=== PATIENT | male | born 1945 | race Caucasian/White ===

== ENCOUNTER 2023-04-25 08:46 | Inpatient (IN) | payer MEDICARE ==
[~2023-04-25] VITALS: Ht 175.3 cm; Wt 108.9 kg
[~2023-04-25 08:46] MED LIST: LEVO-70 PO; LISI5TAB21 PO; METO-408 PO; SIMV-46 PO; TAMS-1 PO
[2023-04-25 09:09] LABS: BASOPHILS # (AUTO) 0.04 K/uL (0.00-0.20); BASOPHILS % (AUTO) 0.2 % (0.0-5.0); EOSINOPHILS # (AUTO) 0.04 K/uL (0.00-0.70); EOSINOPHILS % (AUTO) 0.2 % (0.0-8.0); HEMATOCRIT 42.9 % (42-54); IMMATURE GRANULOCYTE ABSOLUTE 0.14 K/uL (0-1); LYMPHOCYTES # (AUTO) 0.8 K/uL (1.0-4.8); LYMPHOCYTES % (AUTO) 3.9 % (21.0-51.0); MEAN CORPUSCULAR HEMOGLOBIN 32.1 pg (27.0-33.0); MEAN CORPUSCULAR HGB CONC 33.6 g/dL (32.0-36.0); MEAN CORPUSCULAR VOLUME 95.8 fL (79-99); MONOCYTES # (AUTO) 1.3 K/uL (0.1-1.0); MONOCYTES % (AUTO) 6.3 % (3.0-13.0); NEUTROPHILS # (AUTO) 18.4 K/uL (1.8-7.7); NEUTROPHILS % (AUTO) 88.7 % (40.0-77.0); PLATELET COUNT (AUTO) 185 K/uL (130-400); RED BLOOD CELL COUNT(AUTO) 4.48 MIL/uL (4.50-6.20); WHITE BLOOD COUNT (AUTO) 20.7 K/uL (4.8-10.8)
[2023-04-25 09:22] LABS: CREATININE 1.1 mg/dL (0.5-1.5); POTASSIUM 4.8 mmol/L (3.5-5.1)
[2023-04-25 09:27] LABS: ALBUMIN 3.6 g/dL (3.5-5.0); BILIRUBIN,TOTAL 0.9 mg/dL (0.2-1.0); TOTAL PROTEIN, SERUM 7.4 g/dL (6.0-8.3)
[2023-04-25 09:28] LABS: RAPID GROUP A STREP negative (NEGATIVE)
[2023-04-25 09:30] LABS: SARS-CoV-2, RNA, NAAT NEGATIVE SARS CoV-2 (NEGATIVE)
[2023-04-25 09:39] LABS: INFLUENZA TYPE A Negative For Type A (NEGATIVE); INFLUENZA TYPE B Negative For Type B (NEGATIVE)
[2023-04-25 10:04] LABS: INR 0.97 (0.85-1.15); PROTHROMBIN TIME 11.3 SEC (9.6-11.6)
[2023-04-25] MEDS: CEFTRIAXONE 1G VIAL IVPB ONE (10:05)
[2023-04-25] MEDS: 0.9%NACL 1000ML 1,983 ML IV ONE ×2 (10:05→10:06)
[2023-04-25 10:06] LABS: PARTIAL THROMBOPLASTIN TIME 29.1 SEC (26.3-35.5)
[2023-04-25] MEDS: ACETAMINOPHEN 500 MG TABLET PO ONE (10:06)
[2023-04-25 11:21] LABS: APPEARANCE,URINE CLOUDY (CLEAR); BILIRUBIN,URINE NEGATIVE (NEGATIVE); COLOR,URINE LIGHT-YELLOW (YELLOW); GLUCOSE, URINE (UA) NEGATIVE (NEGATIVE); KETONES,URINE NEGATIVE (NEGATIVE); LEUKOCYTE ESTERASE ,URINE 500 Leu/uL (NEGATIVE); NITRATE,URINE 2+ (NEGATIVE); OCCULT BLOOD,URINE SMALL (NEGATIVE); PROTEIN,URINE NEGATIVE (NEGATIVE); UROBILINOGEN,URINE 0.2 mg/dL (0.2-1.0)
[2023-04-25 11:22] LABS: ADD UA MICROSCOPIC YES
[2023-04-25 11:40] LABS: BACTERIA,URINE MANY /HPF (None Seen); MUCUS,URINE RARE LPF (None Seen); SQUAMOUS EPITHELIAL CELL,UR RARE /HPF (0-2); WBC CLUMP FEW /HPF (0-1); WBC,URINE TNTC /HPF (0-1)
[2023-04-25] MEDS: 0.9% NACL 500ML IV.SOLN 500 ML IV ONE (13:09)
[2023-04-25] MEDS: 0.9%NACL 1000ML 1,000 ML IV SCH (14:58)
[2023-04-25] MEDS: ZOSYN 3.375GM +NS 50ML IVPB ONE (14:58)
[2023-04-25 15:29] LABS: MAGNESIUM 2.1 mg/dL (1.80-2.40); THYROID STIMULATING HORMONE 0.48 uIU/mL (0.36-3.74)
[2023-04-25 15:42] LABS: HEMOGLOBIN A1C 6.1 % (4.0-6.0)
[2023-04-25 15:45] LABS: ABG HCO3 21.4 mmol/L (21.0-28.0); ABG OXYGEN SATURATION 96.8 % (95.0-99.0); ABG PCO2 33 mmHg (35-48); ABG PH 7.434 (7.35-7.450); CARBON MONOXIDE 1.6; DEVICE COMMENT RR SAUL RN; HHb 3.1; VENT MODE, BG NC (ROOM AIR)
[2023-04-25 15:50] VITALS: PULSE 69; RESP 22
[2023-04-25] MEDS: IPRATROPIUM/ALBUTEROL SULFATE 3 ML SOLUTION IH PRN (15:52)
[2023-04-25 19:48] VITALS: PULSE 73; RESP 20; O2SAT 96
[2023-04-25] MEDS: IPRATROPIUM/ALBUTEROL SULFATE 3 ML SOLUTION IH SCH (19:48)
[2023-04-25 19:56] VITALS: PULSE 77; RESP 18
[2023-04-25] MEDS: BUDESONIDE 0.5 MG/2 ML INH IH SCH (19:56)
[2023-04-25] MEDS ORDERED: 0.9%NACL 50ML IV SCH (20:00)
[2023-04-25] MEDS: INSULIN HUMULIN R 100 UNIT/ML 3ML SQ SCH (20:53)
[2023-04-25] MEDS ORDERED: NON-FORMULARY MEDICATION 1 EACH (Simvastatin 40 MG) PO SCH (21:00)
[2023-04-25] MEDS: SIMVASTATIN 20 MG TABLET PO SCH (21:32)
[2023-04-25] MEDS: FAMOTIDINE 20MG VIAL IV SCH (21:32)
[2023-04-25] MEDS: ZOSYN 3.375GM +NS 50ML IVPB SCH (21:32)
[2023-04-26] VITALS (111 sets, daily range): BP systolic 53–180; BP diastolic 25–97; PULSE 44–105; RESP 9–76; TEMP 99.9; O2SAT 94–99
[2023-04-26] MEDS: ACETAMINOPHEN 500 MG TABLET PO ONE (01:36)
[2023-04-26] MEDS: NOREPINEPHRIN 4MG/NS 250ML 250 ML IV ONE (01:41)
[2023-04-26] MEDS: NOREPINEPHRIN 4MG/NS 250ML 250 ML IV SCH (01:42)
[2023-04-26] MEDS: 0.9%NACL 1000ML 1,000 ML IV ONE (01:43)
[2023-04-26] MEDS: ACETAMINOPHEN 500 MG TABLET ONE (01:43)
[2023-04-26 01:44] LABS: BASOPHILS # (AUTO) 0.07 K/uL (0.00-0.20); BASOPHILS % (AUTO) 0.3 % (0.0-5.0); EOSINOPHILS # (AUTO) 0.01 K/uL (0.00-0.70); HEMATOCRIT 39.5 % (42-54); IMMATURE GRANULOCYTE ABSOLUTE 0.19 K/uL (0-1); LYMPHOCYTES # (AUTO) 1.7 K/uL (1.0-4.8); LYMPHOCYTES % (AUTO) 6.7 % (21.0-51.0); MEAN CORPUSCULAR HEMOGLOBIN 32.1 pg (27.0-33.0); MEAN CORPUSCULAR HGB CONC 33.4 g/dL (32.0-36.0); MEAN CORPUSCULAR VOLUME 96.1 fL (79-99); MONOCYTES # (AUTO) 1.9 K/uL (0.1-1.0); MONOCYTES % (AUTO) 7.4 % (3.0-13.0); NEUTROPHILS # (AUTO) 21.2 K/uL (1.8-7.7); NEUTROPHILS % (AUTO) 84.8 % (40.0-77.0); PLATELET COUNT (AUTO) 133 K/uL (130-400); RED BLOOD CELL COUNT(AUTO) 4.11 MIL/uL (4.50-6.20); RED CELL DISTRIBUTION WIDTH 14.4 % (11.0-15.5); WHITE BLOOD COUNT (AUTO) 25.1 K/uL (4.8-10.8)
[2023-04-26 01:50] LABS: MAGNESIUM 1.9 mg/dL (1.80-2.40); POTASSIUM 5.4 mmol/L (3.5-5.1)
[2023-04-26] MEDS ORDERED: ACETAMINOPHEN 325 MG TAB PO PRN (02:00)
[2023-04-26 02:22] LABS: SARS-CoV-2, RNA, NAAT NEGATIVE SARS CoV-2 (NEGATIVE)
[2023-04-26] MEDS ORDERED: VANCOMYCIN PROTOCOL PER PHARMACY IV SCH (02:30)
[2023-04-26] MEDS ORDERED: IOHEXOL-350 75 ML VIAL IV ONE ×2 (02:47→03:03)
[2023-04-26] MEDS: VANCOMYCIN 1G/250ML KIT 250 ML IV ONE (02:50)
[2023-04-26] MEDS: ERYTHROMYCIN BASE 0.5% OPHTH OINT 1 GM TUBE OU SCH (02:50)
[2023-04-26 07:01] LABS: POTASSIUM 3.7 mmol/L (3.5-5.1)
[2023-04-26] MEDS: VANCOMYCIN 1G/250ML KIT 250 ML IV SCH (08:40)
[2023-04-26] MEDS: PREDNISONE 20 MG TABLET PO SCH (08:41)
[2023-04-26] MEDS: TAMSULOSIN HCL 0.4 MG CAP.ER.24H PO SCH (08:41)
[2023-04-26] MEDS ORDERED: LISINOPRIL 5 MG TABLET PO SCH (09:00)
[2023-04-26] MEDS ORDERED: METOPROLOL SUCCINATE 25 MG TAB.SR.24H PO SCH (09:00)
[2023-04-26 10:46] LABS: INR 1.07 (0.85-1.15); PROTHROMBIN TIME 12.4 SEC (9.6-11.6)
[2023-04-26] MEDS: HALOPERIDOL INJ 5 MG/ML VIAL IM SCH (19:57)
[2023-04-27] VITALS (96 sets, daily range): BP systolic 60–146; BP diastolic 29–94; PULSE 60–120; RESP 7–64; O2SAT 6–100
[2023-04-27 04:42] LABS: BASOPHILS # (AUTO) 0.03 K/uL (0.00-0.20); BASOPHILS % (AUTO) 0.1 % (0.0-5.0); HEMATOCRIT 36.5 % (42-54); IMMATURE GRANULOCYTE ABSOLUTE 0.37 K/uL (0-1); LYMPHOCYTES # (AUTO) 1.1 K/uL (1.0-4.8); LYMPHOCYTES % (AUTO) 4.2 % (21.0-51.0); MEAN CORPUSCULAR HEMOGLOBIN 31.6 pg (27.0-33.0); MEAN CORPUSCULAR HGB CONC 33.7 g/dL (32.0-36.0); MEAN CORPUSCULAR VOLUME 93.8 fL (79-99); MONOCYTES # (AUTO) 1.6 K/uL (0.1-1.0); MONOCYTES % (AUTO) 5.9 % (3.0-13.0); NEUTROPHILS # (AUTO) 23.8 K/uL (1.8-7.7); NEUTROPHILS % (AUTO) 88.4 % (40.0-77.0); PLATELET COUNT (AUTO) 187 K/uL (130-400); RED BLOOD CELL COUNT(AUTO) 3.89 MIL/uL (4.50-6.20); RED CELL DISTRIBUTION WIDTH 14.4 % (11.0-15.5); WHITE BLOOD COUNT (AUTO) 26.9 K/uL (4.8-10.8)
[2023-04-27 04:53] LABS: POTASSIUM 3.4 mmol/L (3.5-5.1)
[2023-04-27] MEDS ORDERED: POTASSIUM CHLORIDE 10% ELIXIR 20 MEQ/15 ML UDCUP PO PRN (05:30)
[2023-04-27] MEDS: POTASSIUM CHLORIDE 20MEQ/100ML 100 ML IV PRN (06:48)
[2023-04-27] MEDS: 0.9%NACL 10ML VIAL IV SCH (07:40)
[2023-04-27] MEDS: MIDODRINE HCL 5 MG TABLET PO SCH (09:41)
[2023-04-27] MEDS: KCL 20 MEQ ERTAB PO PRN (09:41)
[2023-04-27] MEDS: POTASSIUM CHLORIDE 20MEQ/100ML 100 ML IV ONE (10:28)
[2023-04-28] VITALS (93 sets, daily range): BP systolic 72–144; BP diastolic 27–95; PULSE 51–110; RESP 6–68; O2SAT 94–96
[2023-04-28 05:15] LABS: HEMATOCRIT 36.3 % (42-54); MEAN CORPUSCULAR HEMOGLOBIN 31.9 pg (27.0-33.0); MEAN CORPUSCULAR HGB CONC 33.9 g/dL (32.0-36.0); MEAN CORPUSCULAR VOLUME 94.3 fL (79-99); RED BLOOD CELL COUNT(AUTO) 3.85 MIL/uL (4.50-6.20); RED CELL DISTRIBUTION WIDTH 14.4 % (11.0-15.5); WHITE BLOOD COUNT (AUTO) 20.2 K/uL (4.8-10.8)
[2023-04-28 05:29] LABS: ALBUMIN 2.7 g/dL (3.5-5.0); BILIRUBIN,TOTAL 0.4 mg/dL (0.2-1.0); MAGNESIUM 2.1 mg/dL (1.80-2.40); POTASSIUM 3.6 mmol/L (3.5-5.1); TOTAL PROTEIN, SERUM 6.4 g/dL (6.0-8.3)
[2023-04-28] MEDS: PREDNISONE 20 MG TABLET PO SCH (08:14)
[2023-04-28] MEDS: POTASSIUM CHLORIDE 20MEQ/100ML 100 ML IV ONE (11:20)
[2023-04-28] MEDS: FAMOTIDINE 20MG TAB PO SCH (20:02)
[2023-04-29] VITALS (75 sets, daily range): BP systolic 82–132; BP diastolic 32–90; PULSE 70–113; RESP 8–33; O2SAT 95–100
[2023-04-29 05:54] LABS: HEMATOCRIT 32.3 % (42-54); MEAN CORPUSCULAR HEMOGLOBIN 31.5 pg (27.0-33.0); MEAN CORPUSCULAR HGB CONC 33.4 g/dL (32.0-36.0); MEAN CORPUSCULAR VOLUME 94.2 fL (79-99); RED BLOOD CELL COUNT(AUTO) 3.43 MIL/uL (4.50-6.20); RED CELL DISTRIBUTION WIDTH 14.6 % (11.0-15.5); WHITE BLOOD COUNT (AUTO) 10.8 K/uL (4.8-10.8)
[2023-04-29 06:19] LABS: ALBUMIN 2.4 g/dL (3.5-5.0); BILIRUBIN,TOTAL 0.4 mg/dL (0.2-1.0); MAGNESIUM 1.9 mg/dL (1.80-2.40); POTASSIUM 3.9 mmol/L (3.5-5.1); TOTAL PROTEIN, SERUM 5.4 g/dL (6.0-8.3)
[2023-04-29] MEDS: MAGNESIUM 2GM PREMIX 50ML 50 ML IV PRN (06:40)
[2023-04-29] MEDS: FUROSEMIDE 40MG VIAL IV ONE (10:03)
[2023-04-30] VITALS (13 sets, daily range): BP systolic 90–134; BP diastolic 54–85; PULSE 68–124; RESP 17–20; O2SAT 94–100
[2023-04-30 05:00] LABS: HEMATOCRIT 33.4 % (42-54); MEAN CORPUSCULAR HEMOGLOBIN 31.4 pg (27.0-33.0); MEAN CORPUSCULAR HGB CONC 33.8 g/dL (32.0-36.0); MEAN CORPUSCULAR VOLUME 92.8 fL (79-99); RED BLOOD CELL COUNT(AUTO) 3.6 MIL/uL (4.50-6.20); RED CELL DISTRIBUTION WIDTH 14.5 % (11.0-15.5); WHITE BLOOD COUNT (AUTO) 9.5 K/uL (4.8-10.8)
[2023-04-30 05:22] LABS: ALBUMIN 2.6 g/dL (3.5-5.0); BILIRUBIN,TOTAL 0.5 mg/dL (0.2-1.0); MAGNESIUM 2.2 mg/dL (1.80-2.40); POTASSIUM 3.9 mmol/L (3.5-5.1); TOTAL PROTEIN, SERUM 5.9 g/dL (6.0-8.3)
[2023-04-30] MEDS: IPRATROPIUM 0.5 MG/2.5 ML INH IH ONE (06:15)
[2023-04-30] MEDS: ALBUTEROL 0.083% 2.5 MG/3 ML INH IH ONE (06:16)
[2023-05-01 03:55] LABS: HEMATOCRIT 35.6 % (42-54); MEAN CORPUSCULAR HEMOGLOBIN 31.3 pg (27.0-33.0); MEAN CORPUSCULAR HGB CONC 32.9 g/dL (32.0-36.0); MEAN CORPUSCULAR VOLUME 95.2 fL (79-99); RED BLOOD CELL COUNT(AUTO) 3.74 MIL/uL (4.50-6.20); RED CELL DISTRIBUTION WIDTH 14.6 % (11.0-15.5); WHITE BLOOD COUNT (AUTO) 11.5 K/uL (4.8-10.8)
[2023-05-01 04:00] VITALS: BP 103/51; PULSE 73; RESP 20
[2023-05-01 04:03] LABS: CREATININE 1.2 mg/dL (0.5-1.5); POTASSIUM 3.9 mmol/L (3.5-5.1)
[2023-05-01 04:08] LABS: ALBUMIN 2.6 g/dL (3.5-5.0); BILIRUBIN,TOTAL 0.4 mg/dL (0.2-1.0); MAGNESIUM 2.3 mg/dL (1.80-2.40); TOTAL PROTEIN, SERUM 5.8 g/dL (6.0-8.3)
[2023-05-01 06:36] VITALS: PULSE 85; RESP 18
[2023-05-01 06:38] VITALS: PULSE 85; RESP 18; O2SAT 96
[2023-05-01 08:00] VITALS: BP 81/58; PULSE 76; RESP 19; O2SAT 96
[2023-05-01 11:03] VITALS: PULSE 89; RESP 18
[2023-05-01 12:00] VITALS: BP 89/65; PULSE 103; RESP 17
[2023-05-01] MEDS ORDERED: SIMV-43 PO (14:01)
[2023-05-01] MEDS ORDERED: TAMS-1 PO (14:01)
[2023-05-01] MEDS ORDERED: LEVO-70 PO (14:01)
[2023-05-01] MEDS ORDERED: MIDO10TA PO (14:02)
[2023-05-01] MEDS ORDERED: ALBU90AE2 IH (14:03)
[2023-05-01] MEDS ORDERED: FLUT1DIS IH (14:04)
== END 2023-05-01 17:10 | disposition home or self-care (01) | DRG 871 ==
LOC: EDH 08:46 → EDHIP 14:37 → 2CV 04-26 01:48 → 2CH 04-27 15:15 → 2BH 04-27 21:08 → 4AH 04-29 19:34
PROVIDERS: ADMIT Internal Medicine; ATTEND Internal Medicine
PROC: 02HV33Z Insertion of Infusion Device into Superior Vena Cava, Percutaneous Approach (ICD-10-PCS; principal; 2023-04-26)
PROC: B548ZZA Ultrasonography of Superior Vena Cava, Guidance (ICD-10-PCS; 2023-04-26)
DX: A41.50 Gram-negative sepsis, unspecified (principal); E11.10 Type 2 diabetes mellitus with ketoacidosis without coma; J96.01 Acute respiratory failure with hypoxia; R65.21 Severe sepsis with septic shock; N30.00 Acute cystitis without hematuria; J44.1 Chronic obstructive pulmonary disease with (acute) exacerbation; Z20.822 Contact with and (suspected) exposure to COVID-19; E66.01 Morbid (severe) obesity due to excess calories; B96.5 Pseudomonas (aeruginosa) (mallei) (pseudomallei) as the cause of diseases classified elsewhere; E78.5 Hyperlipidemia, unspecified; E87.6 Hypokalemia; F17.200 Nicotine dependence, unspecified, uncomplicated; G89.29 Other chronic pain; H10.89 Other conjunctivitis; I10 Essential (primary) hypertension; I25.10 Atherosclerotic heart disease of native coronary artery without angina pectoris; M47.816 Spondylosis without myelopathy or radiculopathy, lumbar region; N40.0 Benign prostatic hyperplasia without lower urinary tract symptoms; Z95.0 Presence of cardiac pacemaker; Z98.1 Arthrodesis status; Z79.899 Other long term (current) drug therapy; Z68.35 Body mass index [BMI] 35.0-35.9, adult
CPT/HCPCS: 36415; 36600; 71045; 71270; 72100; 73521; 80048; 80053; 81001; 82435; 82550; 82803; 82947; 82948; 83036; 83605; 83735; 83880; 84132; 84145; 84295; 84443; 84484; 85018; 85025; 85027; 85378; 85610; 85730; 86140; 87040; 87077; 87088; 87186; 87635; 87641; 87804; 87880; 93005; 93306; 93970; 94640; A4357; C1894; G0378; J0696; J1630; J1815; J1940; J2543; J3370; J3475; J3480; J3490; J7030; J7040; Q9967; A4600